=== PATIENT | male | born 2000 | race Caucasian/White ===

== ENCOUNTER 2023-07-17 13:26 | Emergency (ER) | payer BC, SELFPAY ==
[2023-07-17 13:34] VITALS: BP 143/92
--- NOTE | 2023-07-17 14:37 | ED.GENMED ---
History of Present Illness
General
Chief Complaint: Musculo-Skeletal Complaint
Source: patient
Time Seen by Provider: 07/17/23 14:12
Travel History
Have you had any contact with someone who has COVID-19?: No
Do you have any symptoms of coronavirus? Fever > 100 degrees, chills, cough, shortness of breath, sore throat, loss of taste or smell, muscle aches, or headache?: No
History of Present Illness
History of Present Illness:
23-year-old male presenting to the emergency department for evaluation of right-sided neck pain that began after awakening this morning noting he feels a stiffness on the right side of his neck. Patient states he took a Motrin but this did not
provide him much relief so he decided to come to the ER for further evaluation. Patient notes about 3 weeks ago he did have a COVID infection. Denies any current fevers, chills, rigors, no radicular pain to the right upper extremity, no headache,
no visual changes or any other concerns. 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
Past History
Past History
ED Past Medical History: Other (Seasonal allergies)
ED Past Surgical History: None
Social History
Tobacco: Non-smoker
Alcohol: None
Drug: None
Personal: Single
Living: with family
Employment: Employed
Review of Systems
Review of Systems
All Other Systems: ROS reviewed and negative except as documented in HPI and ROS
Phy Exam
Physical Exam
Physical Exam:
GENERAL: Alert , in no apparent distress
EYE: conjunctiva clear
Head: Normocephalic atraumatic
NECK: Supple, Mild tenderness present in the right paracervical region extending in towards the occiput, pain exacerbated with lateral rotation of the neck. No midline tenderness
ENT: mmm.
LUNGS: no acute respiratory distress
NEUROLOGICAL: Alert and oriented, moves all extremities, sensation grossly intact to light touch throughout bilateral upper extremities
SKIN: Warm and dry, skin intact.
MUSCULOSKELETAL: well perfused.
PSYCH: Normal and appropriate interaction.
Scores
Heart Failure Risk
Heart Failure Risk Score: Not Applicable
Heart Score for Chest Pain Patients
STEMI patient?: Not applicable
Withdrawal Assessment of Alcohol
Withdrawal Assessment Completed?: Not applicable
Course
Vital Signs
Initial and Last Documented VS:
Initial Vital Signs
Temp Pulse Resp BP Pulse Ox
98.2 F 60 18 143/92 96
07/17/23 13:34 07/17/23 13:34 07/17/23 13:34 07/17/23 13:34 07/17/23 13:34
Last Documented Vital Signs
Temp Pulse Resp BP Pulse Ox
98.2 F 65 18 145/82 96
07/17/23 13:34 07/17/23 14:47 07/17/23 13:34 07/17/23 14:47 07/17/23 13:34
MDM/Problems Addressed
Differential Diagnosis Includes:
Neck strain, no symptoms to be suggestive of any radicular complications, no concern for meningitis or infectious etiology
MDM/Problems Addressed:
23-year-old male present emergency department after awakening with some right-sided neck stiffness. Took 1 dose of Motrin with minimal relief. Exam seems to be most consistent with a muscular etiology. Advised continued NSAIDs as needed for pain
as well as ice and/or heat, will treat with additional muscle relaxer for home as needed. Advised on return precautions to ER but otherwise stable for discharge home.
*Pulse Oximetry
Patient hypoxic: no
*Critical Care Note
Total Time (30-74mins, 75-104mins- exclusive of procedures): Not Applicable
ED Attending Note
-
Portions of this chart may have been created with voice recognition software.� Occasional wrong word or��sound alike� substitutions may have occurred due to the inherent limitations of voice recognition software.
Discharge Plan
Departure
Patient Disposition: Home (Routine Discharge)
Date of Disposition: 07/17/23
Time of Disposition: 14:37
Patient with high blood pressure during this ER visit?: Yes
Discharge Problem:
Neck pain
Instructions: Generalized Neck Pain (DC)
Prescriptions:
New
cyclobenzaprine 5 mg tablet
5 mg PO TID PRN (Reason: muscle spasm) Qty: 10 0RF
No Action
ciprofloxacin HCl 1 DROP drops
1 drp ophthalmic (eye) Q4 Qty: 1 0RF
Referrals:
NONE,* [Family Provider] -
Stand Alone Forms: Return to Work
Interventions
Interventions:
*Risk Screen - Suicide Last Done: 07/17/23 13:33
*General Assessment Last Done: 07/17/23 13:33
*Neglect/Abuse Screening Last Done: 07/17/23 13:33
*ED COVID-19 Vaccine History Last Done: 07/17/23 14:12
*Nursing Disposition Last Done: 07/17/23 14:47
ED-Musculoskeletal Assessment Last Done: 07/17/23 14:12
Discharge Date and Time
Discharge Date/Time: 07/17/23 14:47
[2023-07-17 14:46] VITALS: BP 145/82
[2023-07-17 14:47] VITALS: BP 145/82
== END 2023-07-17 14:47 | disposition home or self-care (01) ==
LOC: EMR 13:26
PROVIDERS: EMERGENCY PHYSICIAN Emergency Medicine
DX: M54.2 Cervicalgia (principal); R03.0 Elevated blood-pressure reading, without diagnosis of hypertension
CPT/HCPCS: 99283

== ENCOUNTER 2024-04-12 21:02 | Emergency (ER) | payer BC, SELFPAY ==
[2024-04-12 21:07] VITALS: BP 146/100
[2024-04-12 21:23] LABS: COVID-19 Antigen Positive (Negative)
--- NOTE | 2024-04-12 21:53 | ED.GENMED ---
History of Present Illness
General
Chief Complaint: Cold/Flu/URI Symptoms
Time Seen by Provider: 04/12/24 21:34
History of Present Illness
History of Present Illness:
24-year-old male presents to the emergency department for evaluation of cough and fever along with headache and bodyaches that began earlier today. Notes that his father tested positive for COVID earlier this week. Denies any difficulty breathing
or chest pain.
Past History
Past History
ED Past Medical History: Other (Seasonal allergies)
ED Past Surgical History: None
Social History
Tobacco: Non-smoker
Alcohol: None
Drug: None
Personal: Single
Living: with family
Employment: Employed
Review of Systems
Review of Systems
Allergies reviewed?: Yes
All Other Systems: ROS reviewed and negative except as documented in HPI and ROS
Phy Exam
Physical Exam
Physical Exam:
GEN: Well appearing, NAD, WDWN
HEENT: Oral mucosa moist, no scleral icterus
Cardiac: Regular rate and rhythm, no murmurs
Lung: No respiratory distress, no tachypnea, lungs globally clear to auscultation
MSK: No gross deformity or injuries
Skin: Good color, no pallor or jaundice, no rashes
Neuro: AO x3, moves all extremities freely
Psych: Calm, cooperative
Course
Orders/Labs/Results
Orders:
Orders
04/12/24 21:13
COVID-19 Antigen Urgent
Source: Nasal Swab
Comment: .
Abnormal Lab Results
04/12/24
21:13
SARS-CoV-2 Antigen Positive A
(Negative)
Vital Signs
Initial and Last Documented VS:
Initial Vital Signs
Temp Pulse Resp BP Pulse Ox
99.7 F 118 20 146/100 100
04/12/24 21:07 04/12/24 21:07 04/12/24 21:07 04/12/24 21:07 04/12/24 21:07
Last Documented Vital Signs
Temp Pulse Resp BP Pulse Ox
99.7 F 118 20 146/100 100
04/12/24 21:07 04/12/24 21:07 04/12/24 21:07 04/12/24 21:07 04/12/24 21:07
MDM/Problems Addressed
MDM/Problems Addressed:
Patient tested positive for COVID-19, vital signs unremarkable, not hypoxic and no signs of respiratory distress, no indication for antivirals
*Critical Care Note
Total Time (30-74mins, 75-104mins- exclusive of procedures): Not Applicable
ED Attending Note
-
Portions of this chart may have been created with voice recognition software.� Occasional wrong word or��sound alike� substitutions may have occurred due to the inherent limitations of voice recognition software.
Discharge Plan
Departure
Patient Disposition: Home (Routine Discharge)
Date of Disposition: 04/12/24
Time of Disposition: 21:55
Patient with high blood pressure during this ER visit?: No
Discharge Problem:
COVID-19
Instructions: COVID-19 ED
Prescriptions:
No Action
ciprofloxacin HCl 1 DROP drops
1 drp ophthalmic (eye) Q4 Qty: 1 0RF
cyclobenzaprine 5 mg tablet
5 mg PO TID PRN (Reason: muscle spasm) Qty: 10 0RF
Stand Alone Forms: Return to Work
Interventions
Interventions:
*Risk Screen - Suicide Last Done: 04/12/24 21:07
*General Assessment Last Done: 04/12/24 21:07
*Neglect/Abuse Screening Last Done: 04/12/24 21:07
ED- Fall Risk Assessment Last Done: 04/12/24 21:07
*ED COVID-19 Vaccine History Last Done: 04/12/24 21:07
*Nursing Disposition Last Done: 04/12/24 22:00
ED- Pulmonary Assessment Last Done: 04/12/24 21:53
Discharge Date and Time
Discharge Date/Time: 04/12/24 22:00
Print Language: FRENCH
== END 2024-04-12 22:00 | disposition home or self-care (01) ==
LOC: EMR 21:02
PROVIDERS: EMERGENCY PHYSICIAN Emergency Medicine; FAMILY PHYSICIAN Internal Medicine
DX: U07.1 COVID-19 (principal)
CPT/HCPCS: 99282; 87811